=== PATIENT | male | born 1980 ===

== ENCOUNTER 2018-10-06 15:06 | Inpatient (IN) | payer MEDICAID, OTHER ==
[2018-10-06] MEDS ORDERED: Sodium Chloride 0.9% 1,000 ML IV STA (15:15)
[2018-10-06 15:16] VITALS: BMI 28.1
--- NOTE | 2018-10-06 15:17 | ED PDOC ---
Arrival/HPI - General Time Seen by Provider: 10/06/18 15:07 Historian: Patient - History of Present Illness Narrative History of Present Illness (Text): 10/06/18 15:16 A 38 year old male with no significant past medical history presents to the emergency department complaining of abdominal pain since last night. Patient reports associated vomiting and states he drank beer and spicy food. Patient denies any fever, chills, shortness of breath, chest pain, diarrhea, nausea, urinary symptoms, back pain, neck pain, headache, dizziness, or any other complaints. No PMD Time/Duration: Other (last night) Symptom Onset: Gradual Symptom Course: Unchanged Activities at Onset: Light Context: Home Past Medical History - Provider Review Nursing Documentation Reviewed: Yes Family/Social History - Physician Review Nursing Documentation Reviewed: Yes Family/Social History: No Known Family HX Allergies/Home Meds Allergies/Adverse Reactions: Allergies No Known Allergies Allergy (Unverified 10/06/18 15:15) Home Medications: Home Meds Medication Instructions Recorded Confirmed RX: No Known Home Med 10/06/18 10/06/18 Review of Systems - Physician Review All systems were reviewed & negative as marked: Yes - Review of Systems Constitutional: absent: Fevers, Night Sweats Respiratory: absent: SOB Cardiovascular: absent: Chest Pain Gastrointestinal: Abdominal Pain, Vomiting. absent: Diarrhea, Nausea Genitourinary Male: absent: Urinary Output Changes Musculoskeletal: absent: Back Pain, Neck Pain Neurological: absent: Headache, Dizziness Physical Exam - Systems Exam Head: Present: Atraumatic, Normocephalic Pupils: Present: PERRL Extroacular Muscles: Present: EOMI Conjunctiva: Present: Normal Respiratory/Chest: Present: Clear to Auscultation, Good Air Exchange. No: Respiratory Distress, Accessory Muscle Use Cardiovascular: Present: Regular Rate and Rhythm, Normal S1, S2. No: Murmurs Abdomen: Present: Tenderness (rlq) Back: Present: Normal Inspection Upper Extremity: Present: Normal Inspection. No: Cyanosis, Edema Lower Extremity: Present: Normal Inspection. No: Edema Neurological: Present: GCS=15, CN II-XII Intact, Speech Normal Skin: Present: Warm, Dry, Normal Color. No: Rashes Psychiatric: Present: Alert, Oriented x 3, Normal Insight, Normal Concentration Medical Decision Making ED Course and Treatment: 10/06/18 15:18 Impression: 38 year old male presenting to the emergency department complaining of abdominal pain. ro appendciits Plan: -- Labs -- CBC -- COAGs -- Zofran -- Protonix -- IV fluids -- Urinalysis -- Reassess and disposition Progress Notes: 10/06/18 17:[address] show appendciits - zosyn ordered surgery consulted. 10/07/18 08:10 surgery now accpets case to there service. admission changed to tasha londono. 10/07/18 08:11 - Scribe Statement The provider has reviewed the documentation as recorded by the Anu Lyle All medical record entries made by the Newtonibkyle were at my direction and personally dictated by me. I have reviewed the chart and agree that the record accurately reflects my personal performance of the history, physical exam, medical decision making, and the department course for this patient. I have also personally directed, reviewed, and agree with the discharge instructions and disposition. Disposition/Present on Arrival - Present on Arrival Any Indicators Present on Arrival: No - Disposition Have Diagnosis and Disposition been Completed?: Yes Diagnosis: Appendicitis Disposition: HOSPITALIZED Disposition Time: 17:06 Patient Problems: Current Active Problems Problem Status Onset Appendicitis Acute Condition: STABLE
[2018-10-06 16:05] LABS: ALB/GLOB RATIO 1.4 (1.1-1.8); ALBUMIN 5.2 g/dL (3.0-4.8); ALT/SGPT 53 U/L (7-56); AST/SGOT 39 U/L (17-59); BILIRUBIN,DIRECT 0.2 mg/dL (0.0-0.4); BLOOD UREA NITROGEN 13 mg/dL (7-21); CALCIUM 9.8 mg/dL (8.4-10.5); GFR NON-AFRICAN AMERICAN > 60; LIPASE 35 U/L (23-300)
[2018-10-06 16:13] LABS: BASO # 0.02 K/mm3 (0.0-2.0); BASO % 0.1 % (0.0-3.0); GRAN # 15.69 (1.4-6.5); GRAN % 85.7 % (50.0-68.0); HEMOGLOBIN 16.3 g/dL (14.0-18.0); LYMPH # 1.6 (1.2-3.4); LYMPH % 8.5 % (22.0-35.0); MEAN CORPUSCULAR HEMOGLOBIN 27.9 pg (25.0-35.0); MEAN CORPUSCULAR HGB CONC 34.9 g/dl (31.0-37.0); MEAN PLATELET VOLUME 11.7 fl (7.0-11.0); MONO # 1.1 (0.1-0.6); MONO % 5.7 % (1.0-6.0); RBC 5.84 10^6/uL (3.5-6.1); RED CELL DISTRIBUTION WIDTH 13.3 % (11.5-14.5); WHITE BLOOD COUNT 18.3 10^3/uL (4.5-11.0)
[2018-10-06 16:16] LABS: INR 1.07; PARTIAL THROMBOPLASTIN TIME 33.9 Seconds (25.1-36.5); PROTHROMBIN TIME 12.2 SECONDS (9.4-12.5)
[2018-10-06] MEDS ORDERED: Iohexol 350 MG/100 ML VIAL ONE (16:17)
[2018-10-06] MEDS ORDERED: Piperacillin/Tazobact 3.375 gm 100 ML IVPB STA (17:01)
--- NOTE | 2018-10-06 17:08 | CT ---
Date of service: 10/06/2018 PROCEDURE: CT Abdomen and Pelvis with contrast HISTORY: right sided abd pain COMPARISON: None. TECHNIQUE: Intravenous contrast dose: 100 cc Omnipaque 300 Radiation dose: Total exam DLP = 929.16 mGy-cm. This CT exam was performed using one or more of the following dose reduction techniques: Automated exposure control, adjustment of the mA and/or kV according to patient size, and/or use of iterative reconstruction technique. FINDINGS: LOWER THORAX: Unremarkable. LIVER: Unremarkable. No gross lesion or ductal dilatation. GALLBLADDER AND BILE DUCTS: Unremarkable. PANCREAS: Unremarkable. No gross lesion or ductal dilatation. SPLEEN: Unremarkable. ADRENALS: Unremarkable. No mass. KIDNEYS AND URETERS: Non-obstructing bilateral renal calculi none larger than 3 mm. Vague areas of abnormal enhancement of the right kidney of uncertain etiology/significance. This appears adjacent to the inflamed appendix. Elective follow-up ultrasound recommended. No hydronephrosis. No solid mass. VASCULATURE: Unremarkable. No aortic aneurysm. No atherosclerotic calcification or mural plaque present. BOWEL: Unremarkable. No obstruction. No gross mural thickening. APPENDIX: Markedly edematous, dilated appendix 2 cm. Small appendicular less noted. Periappendiceal inflammatory changes noted. No evidence of loculated air, free air or drainable collection. PERITONEUM: Unremarkable. No free fluid. No free air. LYMPH NODES: Unremarkable. No enlarged lymph nodes. BLADDER: Unremarkable. REPRODUCTIVE: Unremarkable. BONES: No acute fracture. OTHER FINDINGS: None. IMPRESSION: 1. Acute appendicitis. No evidence of loculated air, free air or drainable collection. 2. Nonobstructing bilateral renal calculi. 3. Variable enhancement of the right kidney likely normal variant. Elective ultrasound attention right kidney recommended. Communication of results: I discussed the findings of acute appendicitis with the attending physician in the emergency department at 16:59.
[2018-10-06 17:33] LABS: PH,URINE 6.5 (4.7-8.0); URINE BILIRUBIN NEGATIVE (NEGATIVE); URINE BLOOD SMALL (NEGATIVE); URINE GLUCOSE (UA) NEGATIVE (NEGATIVE); URINE LEUKOCYTE ESTERASE NEGATIVE Leu/uL (NEGATIVE); URINE PROTEIN 30 mg/dL (<30 mg/dL); URINE UROBILINOGEN 0.2 E.U./dL (<1 E.U./dL)
[2018-10-06 17:34] LABS: URINE APPEARANCE CLEAR (CLEAR); URINE COLOR YELLOW (YELLOW)
[2018-10-06 17:43] LABS: URINE BACTERIA SMALL /hpf
--- NOTE | 2018-10-06 17:57 | RAD ---
Date of service: 10/06/2018 HISTORY: preop COMPARISON: No prior. FINDINGS: LUNGS: No active pulmonary disease. PLEURA: No significant pleural effusion identified, no pneumothorax apparent. CARDIOVASCULAR: No aortic atherosclerotic calcification present. Prominent appearing cardiac silhouette. Potentially technically magnified. Clinically correlate further. No definite pulmonary vascular congestion evident. OSSEOUS STRUCTURES: No significant abnormalities. VISUALIZED UPPER ABDOMEN: Normal. OTHER FINDINGS: None. IMPRESSION: No infiltrates or pleural effusion bilaterally. Prominent appearing cardiac silhouette may be a function of technical magnification though intrinsic cardiomegaly is not excluded. No pulmonary vascular congestion.
[2018-10-06] MEDS ORDERED: HYDROmorphone 0.5 mg/0.5 ml ISec IVP PRN (18:03)
[2018-10-06] MEDS ORDERED: Morphine 2 mg/ml ISec IVP PRN (18:03)
[2018-10-06] MEDS ORDERED: Influenza Vaccine 60 mcg/0.5 mL SYR (4YR UP) IM ONE (20:39)
[2018-10-06] MEDS ORDERED: Pneumococcal 23-Valent Vaccine IM ONE (20:39)
[2018-10-06] MEDS: Piperacillin/Tazobact 3.375 gm 100 ML IVPB SCH (21:41)
--- NOTE | 2018-10-07 01:18 | CP.PCM.HP ---
<Drea Sarmiento - Last Filed: 10/07/18 01:38> History of Present Illness - History of Present Illness History of Present Illness: General Surgery H&P for Dr. Lane Warner Patient si a 38 M with no PMH and no PSH who presents with sharp RLQ pain and NB/NB vomiting x1 since last night. Patient states the pain began after he ate dinner last night and that he has been unable to eat anything/ not had an appetite since. He states that the pain began in his umbilical region and has slowly moved to his RLQ. He denies any aggravating or alleviating factors, and radiation of the pain. Last BM this am was normal with no blood. He otherwise denies any TAN, f/c, CP, SOB, dysuria, stool changes and extremity pain/weakness. PMH: denies PSH: denies ALL: nkda Social denies smoking and drug use, social ETOH last drink 10/05 2 beers Present on Admission - Present on Admission Any Indicators Present on Admission: No Review of Systems - Review of Systems All systems: reviewed and no additional remarkable complaints except (as per HPI) Past Patient History - Infectious Disease Hx of Infectious Diseases: None - Past Social History Smoking Status: Never Smoked - MUSCULOSKELETAL/RHEUMATOLOGICAL Hx Falls: No - PSYCHIATRIC Hx Substance Use: No Meds Allergies/Adverse Reactions: Allergies Allergy/AdvReac Type Severity Reaction Status Date / Time No Known Allergies Allergy Unverified 10/06/18 15:15 Physical Exam - Constitutional Appears: Well, Non-toxic, No Acute Distress - Head Exam Head Exam: ATRAUMATIC, NORMOCEPHALIC - Eye Exam Eye Exam: EOMI - ENT Exam ENT Exam: Mucous Membranes Moist - Respiratory Exam Respiratory Exam: NORMAL BREATHING PATTERN - Cardiovascular Exam Cardiovascular Exam: Tachycardia (110), REGULAR RHYTHM - GI/Abdominal Exam GI & Abdominal Exam: Guarding (RLQ), Soft, Tenderness (RLQ). absent: Distended, Rigid Additional comments: + McBurney's - Extremities Exam Extremities exam: Positive for: normal capillary refill, pedal pulses present. Negative for: calf tenderness, pedal edema - Neurological Exam Neurological exam: Alert, Oriented x3 - Psychiatric Exam Psychiatric exam: Normal Affect, Normal Mood - Skin Skin Exam: Dry, Intact, Normal Color, Warm Results - Vital Signs Recent Vital Signs: Last Vital Signs Temp 98.4 F 10/06/18 22:00 Pulse 111 H 10/06/18 22:00 Resp 18 10/06/18 22:00 BP 143/89 10/06/18 22:00 Pulse Ox 94 L 10/06/18 22:00 - Labs Result Diagrams: 10/06/18 15:39 10/06/18 15:39 Labs: Laboratory Results - last 24 hr 10/06/18 10/06/18 10/06/18 15:39 15:39 15:39 WBC 18.3 H RBC 5.84 Hgb 16.3 Hct 46.7 MCV 80.0 MCH 27.9 MCHC 34.9 RDW 13.3 Plt Count 250 MPV 11.7 H Gran % 85.7 H Lymph % (Auto) 8.5 L [place] % (Auto) 5.7 Eos % (Auto) 0.0 L Baso % (Auto) 0.1 Gran # 15.69 H Lymph # (Auto) 1.6 [place] # (Auto) 1.1 H Eos # (Auto) 0.0 Baso # (Auto) 0.02 PT 12.2 INR 1.07 APTT 33.9 Sodium 142 Potassium 4.1 Chloride 103 Carbon Dioxide 26 Anion Gap 17 BUN 13 Creatinine 0.9 Est GFR ( Amer) > 60 Est GFR (Non-Af Amer) > 60 Random Glucose 136 H Calcium 9.8 Magnesium 1.9 Total Bilirubin 0.7 Direct Bilirubin 0.2 AST 39 ALT 53 Alkaline Phosphatase 72 Total Protein 8.9 H Albumin 5.2 H Globulin 3.7 Albumin/Globulin Ratio 1.4 Lipase 35 Urine Color Urine Appearance Urine pH Ur Specific [place] Urine Protein Urine Glucose (UA) Urine Ketones Urine Blood Urine Nitrate Urine Bilirubin Urine Urobilinogen Ur Leukocyte Esterase Urine RBC Urine WBC Ur Epithelial Cells Urine Bacteria Urine Other Blood Type Antibody Screen BBK History Checked 10/06/18 10/06/18 17:00 17:40 WBC RBC Hgb Hct MCV MCH MCHC RDW Plt Count MPV Gran % Lymph % (Auto) [place] % (Auto) Eos % (Auto) Baso % (Auto) Gran # Lymph # (Auto) [place] # (Auto) Eos # (Auto) Baso # (Auto) PT INR APTT Sodium Potassium Chloride Carbon Dioxide Anion Gap BUN Creatinine Est GFR ( Amer) Est GFR (Non-Af Amer) Random Glucose Calcium Magnesium Total Bilirubin Direct Bilirubin AST ALT Alkaline Phosphatase Total Protein Albumin Globulin Albumin/Globulin Ratio Lipase Urine Color Yellow Urine Appearance Clear Urine pH 6.5 Ur Specific [place] >= 1.030 Urine Protein 30 H Urine Glucose (UA) Negative Urine Ketones Negative Urine Blood Small H Urine Nitrate Negative Urine Bilirubin Negative Urine Urobilinogen 0.2 Ur Leukocyte Esterase Negative Urine RBC 2 - 5 H Urine WBC 2 - 5 Ur Epithelial Cells 3 - 4 Urine Bacteria Small Urine Other Mucus Blood Type O POSITIVE Antibody Screen Negative BBK History Checked No verified bt Assessment & Plan - Assessment and Plan (Free Text) Assessment: 38 yr old male with Acute appendicitis Plan: IVF Zosyn pain control zofran NPO repeat labs in AM SCD to OR in AM 0730 for Lap Appendectomy Discussed with Dr. Timmy Sarmiento, PGY 1 - Date & Time Date: 10/06/18 Time: 17:20 Decision To Admit - Pt Status Changed To: Hospital Disposition Of: Inpatient Admission - Admit Certification Admit to Inpatient:: After my assessment, the patient will require hospitalization for at least two midnights. This is because of the severity of symptoms shown, intensity of services needed, and/or the medical risk in this patient being treated as an outpatient. - . Bed Request Type: Med/Surg Admitting Physician: Lane Warner <Lane Warner - Last Filed: 10/07/18 08:28> Results - Vital Signs Recent Vital Signs: Last Vital Signs Temp 98.6 F 10/07/18 07:40 Pulse 114 H 10/07/18 07:40 Resp 18 10/07/18 07:40 BP 132/73 10/07/18 07:40 Pulse Ox 95 10/07/18 07:40 - Labs Result Diagrams: 10/07/18 06:00 10/07/18 06:00 Labs: Laboratory Results - last 24 hr 10/06/18 10/06/18 10/06/18 15:39 15:39 15:39 WBC 18.3 H RBC 5.84 Hgb 16.3 Hct 46.7 MCV 80.0 MCH 27.9 MCHC 34.9 RDW 13.3 Plt Count 250 MPV 11.7 H Gran % 85.7 H Lymph % (Auto) 8.5 L [place] % (Auto) 5.7 Eos % (Auto) 0.0 L Baso % (Auto) 0.1 Gran # 15.69 H Lymph # (Auto) 1.6 [place] # (Auto) 1.1 H Eos # (Auto) 0.0 Baso # (Auto) 0.02 PT 12.2 INR 1.07 APTT 33.9 Sodium 142 Potassium 4.1 Chloride 103 Carbon Dioxide 26 Anion Gap 17 BUN 13 Creatinine 0.9 Est GFR ( Amer) > 60 Est GFR (Non-Af Amer) > 60 Random Glucose 136 H Calcium 9.8 Phosphorus Magnesium 1.9 Total Bilirubin 0.7 Direct Bilirubin 0.2 AST 39 ALT 53 Alkaline Phosphatase 72 Total Protein 8.9 H Albumin 5.2 H Globulin 3.7 Albumin/Globulin Ratio 1.4 Lipase 35 Urine Color Urine Appearance Urine pH Ur Specific [place] Urine Protein Urine Glucose (UA) Urine Ketones Urine Blood Urine Nitrate Urine Bilirubin Urine Urobilinogen Ur Leukocyte Esterase Urine RBC Urine WBC Ur Epithelial Cells Urine Bacteria Urine Other Blood Type Blood Type Confirm Antibody Screen BBK History Checked 10/06/18 10/06/18 10/07/18 17:00 17:40 06:00 WBC 11.8 H D RBC 5.31 Hgb 14.5 Hct 43.0 MCV 81.0 MCH 27.3 MCHC 33.7 RDW 13.5 Plt Count 218 MPV 11.3 H Gran % 72.7 H Lymph % (Auto) 18.8 L [place] % (Auto) 7.8 H Eos % (Auto) 0.5 L Baso % (Auto) 0.2 Gran # 8.62 H Lymph # (Auto) 2.2 [place] # (Auto) 0.9 H Eos # (Auto) 0.1 Baso # (Auto) 0.02 PT INR APTT Sodium Potassium Chloride Carbon Dioxide Anion Gap BUN Creatinine Est GFR ( Amer) Est GFR (Non-Af Amer) Random Glucose Calcium Phosphorus Magnesium Total Bilirubin Direct Bilirubin AST ALT Alkaline Phosphatase Total Protein Albumin Globulin Albumin/Globulin Ratio Lipase Urine Color Yellow Urine Appearance Clear Urine pH 6.5 Ur Specific [place] >= 1.030 Urine Protein 30 H Urine Glucose (UA) Negative Urine Ketones Negative Urine Blood Small H Urine Nitrate Negative Urine Bilirubin Negative Urine Urobilinogen 0.2 Ur Leukocyte Esterase Negative Urine RBC 2 - 5 H Urine WBC 2 - 5 Ur Epithelial Cells 3 - 4 Urine Bacteria Small Urine Other Mucus Blood Type O POSITIVE Blood Type Confirm Antibody Screen Negative BBK History Checked No verified bt 10/07/18 10/07/18 06:00 06:10 WBC RBC Hgb Hct MCV MCH MCHC RDW Plt Count MPV Gran % Lymph % (Auto) [place] % (Auto) Eos % (Auto) Baso % (Auto) Gran # Lymph # (Auto) [place] # (Auto) Eos # (Auto) Baso # (Auto) PT INR APTT Sodium 141 Potassium 4.4 Chloride 103 Carbon Dioxide 29 Anion Gap 13 BUN 15 Creatinine 1.0 Est GFR ( Amer) > 60 Est GFR (Non-Af Amer) > 60 Random Glucose 119 H Calcium 9.1 Phosphorus 3.8 Magnesium 2.2 Total Bilirubin 1.0 Direct Bilirubin AST 28 ALT 42 Alkaline Phosphatase 51 Total Protein 7.5 Albumin 4.2 Globulin 3.2 Albumin/Globulin Ratio 1.3 Lipase Urine Color Urine Appearance Urine pH Ur Specific [place] Urine Protein Urine Glucose (UA) Urine Ketones Urine Blood Urine Nitrate Urine Bilirubin Urine Urobilinogen Ur Leukocyte Esterase Urine RBC Urine WBC Ur Epithelial Cells Urine Bacteria Urine Other Blood Type Blood Type Confirm O POSITIVE Antibody Screen BBK History Checked Assessment & Plan - Assessment and Plan (Free Text) Plan: Seen and examined independent of resident staff and imaging personally reviewed. Agree with above assessment and plan. [address] confirmed appendicitis, large dilated retrocecal appendix with appendicolith. Risks and benefits of laparoscopic appendectomy discussed including bleeding, infection, abscess, bowel injury or obstruction, staple leak. Informed consent signed at bedside.
[2018-10-07] MEDS: Piperacillin/Tazobact 3.375 gm 100 ML IVPB SCH (06:16)
[2018-10-07] MEDS: Sodium Chloride 0.9% 1,000 ML IV SCH ×2 (06:32→17:05)
[2018-10-07 06:35] LABS: BASO # 0.02 K/mm3 (0.0-2.0); BASO % 0.2 % (0.0-3.0); EOS # 0.1 (0.0-0.7); EOS % 0.5 % (1.5-5.0); GRAN # 8.62 (1.4-6.5); GRAN % 72.7 % (50.0-68.0); HEMOGLOBIN 14.5 g/dL (14.0-18.0); LYMPH # 2.2 (1.2-3.4); LYMPH % 18.8 % (22.0-35.0); MEAN CORPUSCULAR HEMOGLOBIN 27.3 pg (25.0-35.0); MEAN CORPUSCULAR HGB CONC 33.7 g/dl (31.0-37.0); MEAN PLATELET VOLUME 11.3 fl (7.0-11.0); MONO # 0.9 (0.1-0.6); MONO % 7.8 % (1.0-6.0); RBC 5.31 10^6/uL (3.5-6.1); RED CELL DISTRIBUTION WIDTH 13.5 % (11.5-14.5); WHITE BLOOD COUNT 11.8 10^3/uL (4.5-11.0)
[2018-10-07 06:49] LABS: ALB/GLOB RATIO 1.3 (1.1-1.8); ALBUMIN 4.2 g/dL (3.0-4.8); ALT/SGPT 42 U/L (7-56); AST/SGOT 28 U/L (17-59); BLOOD UREA NITROGEN 15 mg/dL (7-21); CALCIUM 9.1 mg/dL (8.4-10.5); GFR NON-AFRICAN AMERICAN > 60
[2018-10-07] MEDS ORDERED: Lidocaine 1% Inj (20ml) ONE (07:43)
[2018-10-07] MEDS ORDERED: Bupivacaine 0.25% 50 ML INJ IJ ONE (07:43)
[2018-10-07] MEDS ORDERED: Bupivacaine-Epi 0.25%-1:200,000 PF Inj ONE (08:59)
[2018-10-07] MEDS ORDERED: CeFAZolin 1 gm in NS 100ml IVPB ONE (09:00)
[2018-10-07] MEDS ORDERED: Bupivacaine 0.25% Inj(30mL) IJ ONE (09:22)
[2018-10-07] MEDS ORDERED: Lidocaine 1% Inj (20ml) INJ ONE (09:22)
[2018-10-07] MEDS ORDERED: Neostigmine Methylsulfate 3mg/3ml Syringe IV ONE (09:33)
[2018-10-07] MEDS ORDERED: Oxycodone/Acetaminophen 5/325 mg Tab PO PRN (10:35)
[2018-10-07] MEDS ORDERED: Albuterol 0.083% Inhal Sol (2.5 mg/3 mL) UD ONE (10:42)
--- NOTE | 2018-10-07 10:46 | PCM.OP ---
Operative Report - Operative Report Date of Surgery/Procedure: 10/07/18 Time of Surgery/Procedure: 09:00 Surgeon: Lane Warner MD [facility] Director: Xiomara King DO (PGY 2 resident) Anesthesia/Sedation: See main Pre-Operative Diagnosis: See main Post-Operative Diagnosis: See main Indication for Surgery: See main Operative Findings: See main Procedure/Operation Description: ANESTHESIA: General endotracheal; 1% lidocaine with epinephrine + 0.25% Marcaine mix local anesthesia PRE-OPERATIVE DIAGNOSIS: Acute appendicitis with fecolith POST-OPERATIVE DIAGNOSIS: Acute appendicitis, with fecolith INDICATIONS FOR SURGERY: This is a 38 year old Male with no known past medical history who presented to the emergency department earlier with 24 hours of abdominal pain and CT scan findings consistent with acute appendicitis and fecolith. Details of HPI in clinical chart. Risks and benefits of laparoscopic possible open, appendectomy discussed as documented in clinical chart. All questions answered and informed consent signed prior to operation. OPERATIVE FINDINGS: Distended, inflamed retrocecal appendix without perforation, Scant fluid in pelvis; Appendix removed intact; Mesoappendiceal pedicle clips and cecal staple lines in tact without leak or bleeding at end of case. PROCEDURE PERFORMED: Laparoscopic Appendectomy Omental buttress of cecal staple line DETAILS OF PROCEDURE: The patient was given a preoperative dose of Ancef 2 grams 20 minutes prior to incision. SCD boots were placed for DVT prophylaxis. Secure straps placed above the knees. Left arm tucked at patients side in neutral position. Right arm placed out on padded armboard. An orogastric tube placed in order to empty the stomach after the induction of general anesthesia. Upper body warmer placed. No beck catheter used as patient voided immediately prior to coming back to OR. Hair removal performed with shaver. The abdomen was prepped and draped in sterile fashion. Timeout was performed prior to incision. All skin incisions were made using an 11 blade scalpel after being pre- anesthetized with local anesthesia. In the supraumbilical midline, a 5mm circumlinear incision was made, abdominal wall elevated using towel clamp, and veress needle advanced until two clicks heard, intra-abdominal entry confirmed with opening pressures reading 3mmHg, Abdomen insufflated to 15 mmHg pressure with CO2 and a 5mm port then inserted. A 30-degree viewing scope was then inserted and the abdomen was generally inspected and there was not found to be any signs or injury from initial entry. We then placed 2 additional working ports under direct vision, one 12 mm port in left lower quadrant, lateral to the rectus and inferior epigastric vessels; and another 5mm port in the suprapubic region. The abdomen was generally inspected. We then began sweeping the small intestine out of the pelvis and visualized the cecum tracing the taenia down to the appendix and terminal ileum with identifcation of the fat/fold of treves. Small bowel and fold of treves adherent to lateral wall, taken down with blunt dissection to expose dilated tip of appendix. Blunt suctioning was used to separate the small bowel mesentery from the inflamed appendix. The cecum was also mobilized from the white line of told using sharp and bipolar energy dissection to expose the base of the inflamed appendix. A mesenteric window was created bluntly in between base of appendix at cecum and mesoappendix, and appendiceal pedicle ligated and divided using biploar energy device. Additional 5mm metallic clips were placed to control minor bleeding. Hemostasis confirmed. Next a 45 mm blue load linear staple was used to divide the appendix at its base, being sure not to incorporate cecum. The specimen was placed in an Endocatch bag and removed from the 12mm trocar. The trocar reinserted and we next turned our attention to inspecting the staple line. The staple lines were carefully inspected in intact without bleeding. Omentum was then draped over the suture line at a buttress. The 12mm port site fascia was closed using a transfascial suture passer under direct vision with 0-vicryl suture in figure of 8 fashion. The remaining and instruments and ports removed under direct vision. The abdomen was then desufflated. The skin was closed with 4-0 monocryl and dermabond. All sponge, needle and instrument counts were correct. The patient was extubated in the operating room, and taken to the recovery room in stable condition. I was present for the entirety of the operation. Estimated Blood Loss: 25mL Complications: None Specimen: Appendix Discharge & Condition: See main
[2018-10-07] MEDS ORDERED: HYDROmorphone 0.5 mg/0.5 ml ISec IVP PRN (10:50)
--- NOTE | 2018-10-07 10:51 | PCM.SURG1 ---
Surgeon's Initial Post Op Note - Surgeon's Notes Surgeon: Dr. Lane Warner Field Ironworker: Xiomara King, PGY2 Type of Anesthesia: General Endo Anesthesia Administered By: Dr. Yuan Pre-Operative Diagnosis: Acute appendicitis Operative Findings: Large, erythematous, edematous appendix with serous free fluid in the RLQ and the pelvis. No other gross abnormalities. Post operative staple line on cecum intact with no leaking, adequate hemostasis obtained at the end of the case with clips and surgicel Post-Operative Diagnosis: same Operation Performed: laparoscopic appendectomy Specimen/Specimens Removed: appendix Estimated Blood Loss: EBL {In ML}: 25 Blood Products Given: N/A Drains Used: No Drains Post-Op Condition: Fair Date of Surgery/Procedure: 10/07/18 Time of Surgery/Procedure: 09:00
[2018-10-07] MEDS ORDERED: Piperacillin/Tazobact 3.375 gm 100 ML IVPB ONE (12:00)
[2018-10-07] MEDS ORDERED: Amoxicillin-Clav 875-125 mg Tab PO SCH (22:00)
--- NOTE | 2018-10-08 00:10 | CARD ---
APPROVED REPORT Date of service: 10/06/2018 EKG Measurement Heart [id number] <Conclusion> Sinus tachycardia Otherwise normal ECG
[2018-10-08] MEDS: Sodium Chloride 0.9% 1,000 ML IV SCH (05:39)
[2018-10-08 07:16] LABS: BASO # 0.02 K/mm3 (0.0-2.0); BASO % 0.3 % (0.0-3.0); EOS # 0.1 (0.0-0.7); EOS % 1.2 % (1.5-5.0); GRAN # 5.32 (1.4-6.5); GRAN % 68.6 % (50.0-68.0); HEMOGLOBIN 13.1 g/dL (14.0-18.0); LYMPH # 1.6 (1.2-3.4); MEAN CELL VOLUME 82.4 fl (80.0-105.0); MEAN CORPUSCULAR HEMOGLOBIN 27.5 pg (25.0-35.0); MEAN CORPUSCULAR HGB CONC 33.3 g/dl (31.0-37.0); MEAN PLATELET VOLUME 10.9 fl (7.0-11.0); MONO # 0.8 (0.1-0.6); MONO % 9.9 % (1.0-6.0); RBC 4.77 10^6/uL (3.5-6.1); RED CELL DISTRIBUTION WIDTH 13.2 % (11.5-14.5); WHITE BLOOD COUNT 7.8 10^3/uL (4.5-11.0)
--- NOTE | 2018-10-08 07:32 | CP.PCM.DIS ---
Provider - Provider Date of Admission: 10/06/18 17:08 Attending physician: Lane Warner MD Primary care physician: NO FAMILY PROVIDER Consults: none Time Spent in preparation of Discharge (in minutes): 45 Diagnosis - Discharge Diagnosis (1) Status post appendectomy Status: Acute Priority: High (2) Appendicitis Status: Resolved Priority: High Hospital Course - Lab Results Lab Results: Most Recent Lab Values WBC 7.8 10^3/uL (4.5-11.0) D 10/08/18 06:45 RBC 4.77 10^6/uL (3.5-6.1) 10/08/18 06:45 Hgb 13.1 g/dL (14.0-18.0) L 10/08/18 06:45 Hct 39.3 % (42.0-52.0) L 10/08/18 06:45 MCV 82.4 fl (80.0-105.0) 10/08/18 06:45 MCH 27.5 pg (25.0-35.0) 10/08/18 06:45 MCHC 33.3 g/dl (31.0-37.0) 10/08/18 06:45 RDW 13.2 % (11.5-14.5) 10/08/18 06:45 Plt Count 174 10^3/uL (120.0-450.0) 10/08/18 06:45 MPV 10.9 fl (7.0-11.0) 10/08/18 06:45 Gran % 68.6 % (50.0-68.0) H 10/08/18 06:45 Lymph % (Auto) 20.0 % (22.0-35.0) L 10/08/18 06:45 [place] % (Auto) 9.9 % (1.0-6.0) H 10/08/18 06:45 Eos % (Auto) 1.2 % (1.5-5.0) L 10/08/18 06:45 Baso % (Auto) 0.3 % (0.0-3.0) 10/08/18 06:45 Gran # 5.32 (1.4-6.5) 10/08/18 06:45 Lymph # (Auto) 1.6 (1.2-3.4) 10/08/18 06:45 [place] # (Auto) 0.8 (0.1-0.6) H 10/08/18 06:45 Eos # (Auto) 0.1 (0.0-0.7) 10/08/18 06:45 Baso # (Auto) 0.02 K/mm3 (0.0-2.0) 10/08/18 06:45 PT 12.2 SECONDS (9.4-12.5) 10/06/18 15:39 INR 1.07 10/06/18 15:39 APTT 33.9 Seconds (25.1-36.5) 10/06/18 15:39 Sodium 141 mmol/L (132-148) 10/07/18 06:00 Potassium 4.4 mmol/L (3.6-5.0) 10/07/18 06:00 Chloride 103 mmol/L (98-107) 10/07/18 06:00 Carbon Dioxide 29 mmol/L (21-33) 10/07/18 06:00 Anion Gap 13 (10-20) 10/07/18 06:00 BUN 15 mg/dL (7-21) 10/07/18 06:00 Creatinine 1.0 mg/dl (0.8-1.5) 10/07/18 06:00 Est GFR ( Amer) > 60 10/07/18 06:00 Est GFR (Non-Af Amer) > 60 10/07/18 06:00 Random Glucose 119 mg/dL (70-110) H 10/07/18 06:00 Calcium 9.1 mg/dL (8.4-10.5) 10/07/18 06:00 Phosphorus 3.8 mg/dL (2.5-4.5) 10/07/18 06:00 Magnesium 2.2 mg/dL (1.7-2.2) 10/07/18 06:00 Total Bilirubin 1.0 mg/dL (0.2-1.3) 10/07/18 06:00 Direct Bilirubin 0.2 mg/dL (0.0-0.4) 10/06/18 15:39 AST 28 U/L (17-59) 10/07/18 06:00 ALT 42 U/L (7-56) 10/07/18 06:00 Alkaline Phosphatase 51 U/L (38-126) 10/07/18 06:00 Total Protein 7.5 g/dL (5.8-8.3) 10/07/18 06:00 Albumin 4.2 g/dL (3.0-4.8) 10/07/18 06:00 Globulin 3.2 gm/dL 10/07/18 06:00 Albumin/Globulin Ratio 1.3 (1.1-1.8) 10/07/18 06:00 Lipase 35 U/L (23-300) 10/06/18 15:39 Urine Color Yellow (YELLOW) 10/06/18 17:00 Urine Appearance Clear (CLEAR) 10/06/18 17:00 Urine pH 6.5 (4.7-8.0) 10/06/18 17:00 Ur Specific [place] >= 1.030 (1.005-1.035) 10/06/18 17:00 Urine Protein 30 mg/dL (<30 mg/dL) H 10/06/18 17:00 Urine Glucose (UA) Negative mg/dL (NEGATIVE) 10/06/18 17:00 Urine Ketones Negative mg/dL (NEGATIVE) 10/06/18 17:00 Urine Blood Small (NEGATIVE) H 10/06/18 17:00 Urine Nitrate Negative (NEGATIVE) 10/06/18 17:00 Urine Bilirubin Negative (NEGATIVE) 10/06/18 17:00 Urine Urobilinogen 0.2 E.U./dL (<1 E.U./dL) 10/06/18 17:00 Ur Leukocyte Esterase Negative Aby/uL (NEGATIVE) 10/06/18 17:00 Urine RBC 2 - 5 /hpf (0-2) H 10/06/18 17:00 Urine WBC 2 - 5 /hpf (0-6) 10/06/18 17:00 Ur Epithelial Cells 3 - 4 /hpf (0-5) 10/06/18 17:00 Urine Bacteria Small /hpf (NONE) 10/06/18 17:00 Urine Other Mucus /hpf 10/06/18 17:00 Blood Type O POSITIVE 10/06/18 17:40 Blood Type Confirm O POSITIVE 10/07/18 06:10 Antibody Screen Negative 10/06/18 17:40 BBK History Checked No verified bt 10/06/18 17:40 - Hospital Course Hospital Course: Patient is a 38 male with no PMH or PSH who presented with sharp RLQ pain and NB/NB vomiting x1 since last night. Patient states the pain began after he ate dinner last night and that he has been unable to eat anything nor had an appetite since. He states that the pain began in his umbilical region and has slowly moved to his RLQ. He denies any aggravating or alleviating factors or radiation of the pain. Last BM this morning was normal with no blood. He otherwise denies any TAN, f/c, CP, SOB, dysuria, stool changes and extremity pain/weakness. Patient had a laparoscopic appendectomy the day of admission 10/07. This was without complications. Patient remained mildly tachycardic throughout this hospital course. He remained afebrile. He initially required supplemental O2 via nasal cannula post-op but then was saturating well and was comfortable on room air the following day. He was given Zosyn pre-op and Augmentin post-op. Upon discharge, patient was tolerating PO diet. He was ambulating without difficulty. His pain was well controlled. He was urinating and having BMs. Surgical incisions were clean, intact, without signs of bleeding or infection. Discharge Exam - Head Exam Head Exam: ATRAUMATIC, NORMOCEPHALIC - Eye Exam Eye Exam: EOMI, Normal appearance - ENT Exam ENT Exam: Mucous Membranes Moist - Neck Exam Neck exam: Normal Inspection - Respiratory Exam Respiratory Exam: NORMAL BREATHING PATTERN, UNREMARKABLE. absent: Accessory Muscle Use, Respiratory Distress - Cardiovascular Exam Cardiovascular Exam: Tachycardia (100-105), REGULAR RHYTHM - GI/Abdominal Exam GI & Abdominal Exam: Soft, Tenderness (mild). absent: Distended, Firm, Mass Additional comments: laparoscopic incisions intact with glue, no ecchymosis, bleeding, discharge, or erythema mildly tender - Extremities Exam Extremities exam: normal inspection - Neurological Exam Neurological exam: Alert, CN II-XII Intact, Oriented x3 - Psychiatric Exam Psychiatric exam: Normal Affect, Normal Mood - Skin Skin Exam: Dry, Normal Color, Warm Discharge Plan - Discharge Medications Prescriptions: Amoxicillin/Clavulanate [Augmentin 875 MG-125 MG] 1 tab PO BID #6 tab Ibuprofen [Motrin Tab] 600 mg PO Q6H #20 tab Sennosides/Docusate Sodium [Docusate Sodium & Senna 50 mg-8.6 mg] 1 tab PO BID #60 tab - Follow Up Plan Condition: IMPROVED Disposition: HOME/ ROUTINE Patient education suggested?: Yes Additional Instructions: See Dr. Warner's discharge instructions. Call his office for appointment in 2-4 weeks--this is covered under the cost of your surgery, no extra expense. Take antibiotics as instructed in the morning and the evening--do not stop early. Call Dr. Warner's office for any issues. Referrals: FAMILY PROVIDER,NO [Primary Care Provider] - Lane Warner MD [Staff Provider] -
[2018-10-08 07:42] LABS: ALB/GLOB RATIO 1.2 (1.1-1.8); ALBUMIN 3.6 g/dL (3.0-4.8); ALT/SGPT 43 U/L (7-56); AST/SGOT 43 U/L (17-59); BLOOD UREA NITROGEN 13 mg/dL (7-21); CALCIUM 8.4 mg/dL (8.4-10.5); GFR NON-AFRICAN AMERICAN > 60
[2018-10-08 09:28] VITALS: BP 133/83; PULSE 101; RESP 20; TEMP 98.4; O2SAT 98
== END 2018-10-08 14:25 | disposition home or self-care (01) | DRG 225 ==
LOC: ED 15:06 → ERH 17:08 → 5RSO 18:11
PROVIDERS: ADMIT Internal Medicine; ATTEND Surgery
PROC: 0DTJ4ZZ Resection of Appendix, Percutaneous Endoscopic Approach (ICD-10-PCS; principal; 2018-10-07 08:30)
DX: K35.80 Unspecified acute appendicitis (principal); R40.2412 Glasgow coma scale score 13-15, at arrival to emergency department

== ENCOUNTER 2018-11-03 21:14 | Emergency (ER) | payer OTHER, MEDICAID ==
[2018-11-03 21:52] VITALS: RESP 18; TEMP 97.7; BMI 25.7
--- NOTE | 2018-11-03 22:21 | ED PDOC ---
Arrival/HPI - General Chief Complaint: Back Pain Time Seen by Provider: 11/03/18 21:42 Historian: Patient - History of Present Illness Narrative History of Present Illness (Text): 11/03/18 22:19 38 year old male, with no significant past medical history, presents to the ED for evaluation of upper back pain since 3 days. Patient denies any recent trauma or injury. Patient informs associated cough but denies any fever, chills, chest pain, shortness of breath, headache, dizziness, abdominal pain, nausea, vomiting or any other complaints. Patient reports recent appendectomy less than 4 weeks ago (10/06/18). Time/Duration: < week Symptom Onset: Gradual Symptom Course: Unchanged Activities at Onset: Light Context: Home Past Medical History - Provider Review Nursing Documentation Reviewed: Yes - Infectious Disease Hx of Infectious Diseases: None - Hematological/Oncological Hx Blood Transfusions: No Hx Blood Transfusion Reaction: No - Musculoskeletal/Rheumatological Hx Falls: No - Psychiatric Hx Substance Use: No - Surgical History Hx Appendectomy: Yes - Anesthesia Hx Anesthesia Reactions: No Hx Malignant Hyperthermia: No Family/Social History - Physician Review Nursing Documentation Reviewed: Yes Family/Social History: No Known Family HX Smoking Status: Never Smoked Hx Alcohol Use: No Hx Substance Use: No Allergies/Home Meds Allergies/Adverse Reactions: Allergies No Known Allergies Allergy (Verified 11/03/18 21:37) Review of Systems - Physician Review All systems were reviewed & negative as marked: Yes - Review of Systems Respiratory: absent: SOB Cardiovascular: absent: Chest Pain Musculoskeletal: Back Pain (upper back pain) Physical Exam - Physical Exam Narrative Physical Exam (Text): 11/03/18 22:22 Constitutional: No acute distress. Head: Normocephalic. Atraumatic. Eyes: PERRL. ENT: Moist mucous membranes. No pharyngeal erythema or exudates. Neck: Supple. Cardiovascular: Tachycardia. Chest: No tenderness. Respiratory: Clear to auscultation bilaterally. GI: Soft. Nontender. Nondistended. Back: No CVA tenderness. Musculoskeletal: No tenderness or swelling of extremities. Skin: No rash. Neurologic: Alert, no focal deficit. Vital Signs Reviewed: Yes Vital Signs Temp Pulse Resp BP Pulse Ox 11/03/18 21:38 97.7 F 104 H 18 152/81 H 98 Temperature: Afebrile Blood Pressure: Normal Pulse: Tachycardic Respiratory Rate: Normal Appearance: Positive for: Well-Appearing, Non-Toxic, Comfortable Pain Distress: None Mental Status: Positive for: Alert and Oriented X 3 Medical Decision Making ED Course and Treatment: 11/03/18 22:19 Impression: 38 year old male presents to the ED for evaluation of upper back pain. Plan: -- EKG -- Labs -- Chest X-ray -- Toradol -- Urine Culture -- Urinalysis -- Reassess and disposition Prior Visits: Notes and results from previous visits were reviewed. Progress Notes: 11/03/18 22:45 EKG NSR 96 bpm, no ST/T wave changes, normal axis. 11/03/18 23:06 CXR no pneumonia or pneumothorax. 11/03/18 23:40 Patient states feels better with treatment. Dimer negative. Patient in no distress. Labs unremarkable. Instructed to f/u with PMD for further evaluation. States had this same pain which is more burning in character over the past year as well. Also was told he had "fluid in his lung" on previous admission, which is not apparent on CXR today but instructed patient that he needs primary care f/u to further evaluate this. Instructed to return to ED for worsening pain, dyspnea, fever, or any other problem. Relaster [id number]. - Scribe Statement The provider has reviewed the documentation as recorded by the Scribe Bree Larry. All medical record entries made by the Scribe were at my direction and personally dictated by me. I have reviewed the chart and agree that the record accurately reflects my personal performance of the history, physical exam, medical decision making, and the department course for this patient. I have also personally directed, reviewed, and agree with the discharge instructions and disposition. Disposition/Present on Arrival - Present on Arrival Any Indicators Present on Arrival: No History of DVT/PE: No History of Uncontrolled Diabetes: No Urinary Catheter: No History of Decub. Ulcer: No History Surgical Site Infection Following: None - Disposition Have Diagnosis and Disposition been Completed?: Yes Diagnosis: Upper back pain Disposition: HOME/ ROUTINE Disposition Time: 23:42 Patient Plan: Discharge Patient Problems: Current Active Problems Problem Status Onset Upper back pain Acute Condition: STABLE Discharge Instructions (ExitCare): Upper Back Pain Print Language: WELSH Prescriptions: Famotidine [Pepcid] 1 tab PO BID #14 tab Ibuprofen [Motrin] 600 mg PO Q6 #25 tab Referrals: [facility] [place] [Outside] - Follow up with primary Forms: [employer] (Urdu)
[2018-11-03 22:24] LABS: URINE BILIRUBIN NEGATIVE (NEGATIVE); URINE BLOOD TRACE-INTACT (NEGATIVE); URINE GLUCOSE (UA) NEGATIVE (NEGATIVE); URINE LEUKOCYTE ESTERASE NEGATIVE Leu/uL (NEGATIVE); URINE PROTEIN NEGATIVE mg/dL (<30 mg/dL); URINE UROBILINOGEN 0.2 E.U./dL (<1 E.U./dL)
[2018-11-03 22:25] LABS: URINE APPEARANCE CLEAR (CLEAR); URINE COLOR STRAW (YELLOW)
[2018-11-03 22:52] LABS: BASO # 0.04 K/mm3 (0.0-2.0); BASO % 0.5 % (0.0-3.0); EOS # 0.3 (0.0-0.7); EOS % 3.4 % (1.5-5.0); GRAN # 5.47 (1.4-6.5); GRAN % 62.2 % (50.0-68.0); HEMOGLOBIN 14.5 g/dL (14.0-18.0); LYMPH # 2.4 (1.2-3.4); LYMPH % 26.7 % (22.0-35.0); MEAN CELL VOLUME 80.6 fl (80.0-105.0); MEAN CORPUSCULAR HEMOGLOBIN 27.6 pg (25.0-35.0); MEAN CORPUSCULAR HGB CONC 34.3 g/dl (31.0-37.0); MEAN PLATELET VOLUME 11.3 fl (7.0-11.0); MONO # 0.6 (0.1-0.6); MONO % 7.2 % (1.0-6.0); RBC 5.25 10^6/uL (3.5-6.1); RED CELL DISTRIBUTION WIDTH 12.7 % (11.5-14.5); WHITE BLOOD COUNT 8.8 10^3/uL (4.5-11.0)
[2018-11-03 23:03] LABS: ALB/GLOB RATIO 1.4 (1.1-1.8); ALBUMIN 4.8 g/dL (3.0-4.8); ALT/SGPT 56 U/L (7-56); AST/SGOT 29 U/L (17-59); BLOOD UREA NITROGEN 19 mg/dL (7-21); CALCIUM 9.8 mg/dL (8.4-10.5); GFR NON-AFRICAN AMERICAN > 60
[2018-11-04 06:16] VITALS: BP 132/84; PULSE 85; O2SAT 100
--- NOTE | 2018-11-04 07:49 | RAD ---
Date of service: 11/03/2018 HISTORY: bilateral upper back pain COMPARISON: 10/06/2018 FINDINGS: LUNGS: No active pulmonary disease. PLEURA: No significant pleural effusion identified, no pneumothorax apparent. CARDIOVASCULAR: No aortic atherosclerotic calcification present. Top-normal heart size. Top-normal pulmonary vascularity OSSEOUS STRUCTURES: No significant abnormalities. VISUALIZED UPPER ABDOMEN: Normal. OTHER FINDINGS: None. IMPRESSION: No active disease. No interval pathology noted.
--- NOTE | 2018-11-04 12:00 | CARD ---
APPROVED REPORT Date of service: 11/03/2018 EKG Measurement Heart [id number] <Conclusion> Normal sinus rhythm Normal ECG
== END 2018-11-03 23:45 | disposition home or self-care (01) ==
LOC: ED 21:14
DX: M54.6 Pain in thoracic spine (principal)
CPT/HCPCS: 71045; 80053; 81001; 82550; 85025; 85378; 87086; 93005; 96374; 99283; J1885